=== PATIENT | female | born 2000 | race Caucasian/White ===

== ENCOUNTER → 2025-02-06 10:34 | Outpatient (CLI) | payer OTHER, SELFPAY ==
--- NOTE | 2025-02-06 10:39 | DI.CT.S_ITS ---
PROCEDURE: CT HIP RIGHT WITHOUT CON INDICATIONS: Right hip impingement syndrome TECHNIQUE: Noncontrast 3 mm axial sections acquired through the bony pelvis. Additional 3 mm axial sections acquired through the symptomatic hip joint, with coronal and sagittal reformats. COMPARISON: Outside Film, MR, MR HIP RIGHT WITHOUT CONTRAST, 08/12/2024, 12:34. FINDINGS: Image quality: Excellent. Bones: Mild lower lumbar facet arthropathy. The sacrum is intact. Bilateral sacroiliac joints are unremarkable. The right hip is well aligned. No acute fracture or dislocation of the right hip. The left hip is well aligned as well. No acute fracture or dislocation of the left hip. Joint space of the right hip is well maintained. No definitive osseous prominence of the right femoral head and neck junction to suggest CAM type femoral acetabular impingement. Soft tissues: Small fluid in the pelvis, likely physiologic in a patient of this age and gender. Small hypoattenuating lesion in the uterus IMPRESSION: Joint space of the right hip is well maintained. Dictated by: Zina Mcelroy M.D. on 02/08/2025 at 11:43 Approved by: Zina Mcelroy M.D. on 02/08/2025 at 11:52
== END ==
PROVIDERS: Referring Provider Orthopaedic Surgery; Visit Provider Orthopaedic Surgery
DX: M47.816 Spondylosis without myelopathy or radiculopathy, lumbar region (principal); M25.851 Other specified joint disorders, right hip; S73.191D Other sprain of right hip, subsequent encounter
CPT/HCPCS: 73700